=== PATIENT | male | born 1945 | race Caucasian/White ===

== ENCOUNTER → 2016-11-08 | Outpatient (CLI) | payer OTHER ==
[~2016-11-08] MED LIST: ALLO300T2 PO; LISI-725 PO; OPTIRAY 320 IV PRN; PANT1TAB48 PO; PRD10 PO; TAMS0.4C38 PO
[2016-11-08 11:55] LABS: BASO % 0.1 %; BASO ABS # 0.01 K/uL (0-0.2); HEMATOCRIT 36.7 % (42-52); IG% 1.6 %; LYMPH % 13.9 %; LYMPH ABS # 1.23 K/uL (1.2-3.4); MEAN CELL VOLUME 97.1 fL (80-100); MEAN CORPUSCULAR HEMOGLOBIN 34.1 pg (25-34); MEAN PLATELET VOLUME 9.2 fL (7.4-10.4); MONO % 8.2 %; NEUT % 75.2 %; PLATELET COUNT 198 K/uL (130-400); RED BLOOD COUNT 3.78 M/uL (4.7-6.1); WHITE BLOOD COUNT 8.83 K/uL (4.8-10.8)
[2016-11-08 12:04] LABS: COMPLETE YES; MEAN CORPUSCULAR HGB CONC 35.1 g/dl (32-36)
[2016-11-08 12:07] LABS: BLOOD UREA NITROGEN 20 mg/dl (7-18); BUN/CREATININE RATIO 16.4 (10-20); CALCIUM 9.5 mg/dl (8.5-10.1); CARBON DIOXIDE 31 mmol/L (21-32); CHLORIDE 101 mmol/L (98-107); GLUCOSE 114 mg/dl (70-99); POTASSIUM 4.1 mmol/L (3.5-5.1); SODIUM 136 mmol/L (136-145)
--- NOTE | 2016-11-08 14:31 | DIAGNOSTIC IMAGING REPORT ---
CT SCAN OF THE ABDOMEN AND PELVIS WITH IV CONTRAST CLINICAL HISTORY: Crohn's disease. Abscess. COMPARISON STUDY: No priors. TECHNIQUE: Following the IV administration of 93 cc of Optiray 320, CT scan of the abdomen and pelvis is performed from the lung bases to the proximal femora. Images are reviewed in the axial, sagittal, and coronal planes. IV contrast was administered without complication. A dose lowering technique was utilized adhering to the principles of ALARA. CT DOSE: 626.24 mGy.cm FINDINGS: Lung bases: The heart is normal in size and there is a small pericardial effusion. The coronary arteries are densely calcified. The lung bases are clear. Liver: The contrast-enhanced liver is normal in size and contour. The liver demonstrates diffusely diminished attenuation consistent with hepatic steatosis. There is no intrahepatic biliary ductal dilatation. The hepatic veins and portal veins are patent. Gallbladder: Large calcified gallstones are identified. The gallbladder is otherwise normal in appearance. Spleen: Normal in size and attenuation. Pancreas: There is moderate fatty atrophy of the pancreas. Adrenal glands: Unremarkable. Kidneys: The contrast enhanced kidneys there is remarkable cortical atrophy and are without hydronephrosis. The kidneys enhance symmetrically. There are at least 7 nonobstructing left renal calculi measuring up to 9 mm. There are at least 9 nonobstructing right renal calculi measuring up to 5 mm. A 12 mm cyst is noted in the left kidney. Additional subcentimeter cortical hypodensities also likely represent cysts but are too small for definitive characterization. Abdominal vasculature: There is moderate to advanced atherosclerotic calcification and ectasia of the abdominal aorta. There is mild intimal dilatation of the right common iliac artery which measures up to 1.9 cm. Bowel and peritoneum: A duodenal diverticulum is noted. There is no bowel obstruction. There is no intraperitoneal free air or abdominal ascites. There is a fat-containing umbilical hernia. There is multifocal narrowing of the cecum which appears tethered to adjacent loops of the distal/terminal ileum as well as itself. Several fistulous connections are identified, best seen on axial images #224 - 233 There is a complex, thick-walled and peripherally enhancing, multiloculated gas and fluid containing collection identified centered in the right ventral pelvic wall. This is best seen on axial image #281. The collection measures approximately 7.5 x 5 x 8.5 cm and appears to extend through the ventral abdominal wall into the subcutaneous fat. A thin tract extends between this collection and the adjacent cecum, best seen on axial images #251-264. No focally thick walled or hyperemic loops of bowel are identified to confirm active Crohn's disease. Lymphadenopathy: None. Pelvic viscera: The the bladder is distended. There is a large bladder diverticulum oriented posteriorly into the right. This measures up to 8 cm as seen on image #376. The prostate gland is diminutive and heterogeneous. The perianal soft tissues are normal as imaged. Skeletal structures: The skeletal structures are osteopenic. There is mild lumbosacral spondylosis. There are bilateral pars defects at L5 without evidence of anterolisthesis at L5-S1. No lytic or blastic lesions are seen. IMPRESSION: 1. There is no bowel obstruction. No intraperitoneal free air is seen. 2. There is significant abnormality identified involving the distal/terminal ileum and cecum. There is multifocal narrowing of the cecum with numerous fistulous connections identified between the cecum and the distal small bowel (colocolonic as well as enterocolonic). This is consistent with reported history of Crohn's disease. 3. No focally thick walled or hyperemic bowel loops are identified. 4. There is a multiloculated, thick-walled, gas and fluid containing fluid collection centered in the ventral right pelvic wall consistent with abscess. This extends through the pelvic wall and into the subcutaneous fat, and there is likely a fistulous connection between this collection and the cecum. 5. Nephrolithiasis and cholelithiasis. 6. There is a large bladder diverticulum. 7. Additional findings as above. Electronically signed by: Jere Chacon M.D. 11/08/2016 2:29 PM Dictated Date/Time: 11/08/2016 2:13 PM
== END | disposition home or self-care (01) ==
LOC: C.CTS 10:37
PROVIDERS: ATTEND Internal Medicine Gastroenterology
DX: K50.90 Crohn's disease, unspecified, without complications (principal); N20.0 Calculus of kidney; K80.20 Calculus of gallbladder without cholecystitis without obstruction; N32.3 Diverticulum of bladder

== ENCOUNTER 2016-11-20 13:28 | Emergency (ER) | payer OTHER ==
[~2016-11-20] VITALS: Ht 177.8 cm; Wt 90.7 kg
[2016-11-20 13:32] VITALS: TEMP 36.7; Ht 177.8 cm; Wt 90.7 kg
--- NOTE | 2016-11-20 14:28 | EMERGENCY ROOM VISIT NOTE ---
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 I was involved in the patient's care and did evaluate the patient myself. I was involved in the care throughout the ER stay. The patient's IV tubing was changed. He will receive his IV fluids. He can be discharged home.
[2016-11-20] MEDS ORDERED: PRD10 PO (14:45)
[2016-11-20] MEDS ORDERED: TAMS0.4C38 PO (14:45)
[2016-11-20] MEDS ORDERED: LISI-725 PO (14:45)
[2016-11-20] MEDS ORDERED: PANT1TAB48 PO (14:45)
[2016-11-20] MEDS ORDERED: ALLO300T2 PO (14:45)
--- NOTE | 2016-11-20 15:47 | EMERGENCY ROOM VISIT NOTE ---
History First contact with patient: 13:42 Chief Complaint: OTHER COMPLAINT Stated Complaint: IV ISSUE History of Present Illness The patient is a 71 year old male who presents to the Emergency Room with complaints of problem with his midline IV. Patient states that he was discharged yesterday from [facility] after receiving surgery for an ileostomy. He states that he has the midline IV to receive IV fluids for hydration support, he states he has to get 1 L every day. Today was the first day during the IV fluids, the home nurse came and hooked up his IV fluids. Patient states that he got up to go to the bathroom and was holding his IV bag down at his side, which caused blood to back up into the IV line. The home nurse was already gone, and the patient and his were uncomfortable managing this, they presented to the Emergency Department requesting additional education regarding his IV line. The patient denies any other complaints or issues and has been doing well since his discharge from the hospital. Review of Systems A complete 10 point review of systems was reviewed with the patient with pertinent positives and negatives as per history of present illness. All else were negative. Social History Smoking Status: Never Smoker Current/Historical Medications Scheduled Allopurinol (Zyloprim), 300 MG PO DAILY Lisinopril (Zestril), 20 MG PO DAILY Pantoprazole (Protonix), 40 MG PO DAILY Prednisone (Prednisone), 15 MG PO DAILY Tamsulosin Hcl (Flomax), 0.4 MG PO DAILY Physical Exam Vital Signs Date Time Temp Pulse Resp B/P (MAP) Pulse Ox O2 Delivery O2 Flow Rate FiO2 11/20/16 15:43 62 18 172/104 99 Room Air 11/20/16 13:32 36.7 93 18 164/86 97 Room Air Physical Exam CONSTITUTIONAL: No acute distress. Well appearing and well nourished. Alert and oriented X 4 with normal affect. RESPIRATORY: Clear to auscultation bilaterally with no wheezing, crackles, rhonchi or stridor. Equal expansion bilaterally. CARDIOVASCULAR: Regular rate and rhythm with no murmurs, rubs or gallops. Normal peripheral perfusion. No edema. GASTROINTESTINAL: Soft, nontender, nondistended. Bowel sounds present in all quadrants. MUSCULOSKELETAL: Full range of motion of all joints without discomfort. There is a left upper extremity midline IV site noted, no drainage, no erythema or swelling, nontender. INTEGUMENTARY: No rash or other significant dermatologic conditions noted. NEUROLOGIC: Cranial nerves II-XII grossly intact. No focal neurologic deficits noted. Medical Decision & Procedures Medical Decision Patient was concerned about blood leaking back from his IV line into the IV tubing for his fluids. He only received about half of his 1L fluid bag prior to this occurring. I did spend several minutes educating the patient and his regarding IV care , flushing and clamping of the line, and physically that he should not hold IV bag lower than his heart level to help prevent blood flow back into the line. I did instruct the patient that any time he is going to change positions with the bag that he should clamp it, and showed his how to do this. IV tubing was changed to new tubing with his existing bag from home, and the rest of his IV fluids were allow to infuse while in the ED. There was no complication. The patient was discussed with Dr. Chappell, who also evaluated the patient and agrees with my assessment and plan. The patient was instructed to follow up with his PCP as needed. Patient was discharged home in stable condition and ambulatory. Medication Reconcilliation Current Medication List: was personally reviewed by me Blood Pressure Screening Patient's blood pressure: Elevated blood pressure Blood pressure disposition: Referred to PCP Impression Primary Impression: IV infusion line dysfunction Departure Information Dispostion Home / Self-Care Condition GOOD Referrals Rudy Mckeon M.D. (PCP) Patient Instructions IV Care Catheter, My [employer] Additional Instructions Always keep the IV fluid bag hanging at a level above your head. If you need to change positions such as going into the bathroom, clamp the roller clamp on the tubing to prevents blood from flowing back into the IV tubing. Keep all follow-up appointment as scheduled. Follow-up with your PCP as needed. Problem Qualifiers Primary Impression: IV infusion line dysfunction Encounter type: initial encounter Qualified Codes: T82.598A - Other mechanical complication of other cardiac and vascular devices and implants, initial encounter
[2016-11-20 16:41] VITALS: BP 197/81; PULSE 67; O2SAT 99
== END 2016-11-20 16:40 | disposition home or self-care (01) ==
LOC: C.EDB 13:31 → C.EDD 16:40
DX: T82.9XXA Unspecified complication of cardiac and vascular prosthetic device, implant and graft, initial encounter (principal); X58.XXXA Exposure to other specified factors, initial encounter; Z93.2 Ileostomy status; Z79.899 Other long term (current) drug therapy

== ENCOUNTER → 2017-01-02 | Outpatient (CLI) | payer OTHER ==
[~2017-01-02] MED LIST changes: -OPTIRAY 320 IV PRN
== END | disposition home or self-care (01) ==
LOC: C.PATHSPEC 18:00
PROVIDERS: ATTEND Plastic Surgery
DX: D23.39 Other benign neoplasm of skin of other parts of face (principal)

== ENCOUNTER 2017-01-14 13:14 | Emergency (ER) | payer OTHER ==
[~2017-01-14] VITALS: Ht 177.8 cm; Wt 82.6 kg
[2017-01-14 13:17] VITALS: TEMP 36.3; Ht 177.8 cm; Wt 82.6 kg
[2017-01-14] MEDS ORDERED: SODIUM CHLORIDE 0.9% 1000ML 1,000 ML IV STA ×2 (14:20→15:47)
[2017-01-14 14:27] LABS: BASO % 0.3 %; BASO ABS # 0.03 K/uL (0-0.2); COMPLETE YES; EOS % 1.9 %; HEMATOCRIT 34.7 % (42-52); IG% 0.9 %; LYMPH % 22.9 %; LYMPH ABS # 2.69 K/uL (1.2-3.4); MEAN CELL VOLUME 96.7 fL (80-100); MEAN CORPUSCULAR HEMOGLOBIN 33.7 pg (25-34); MEAN CORPUSCULAR HGB CONC 34.9 g/dl (32-36); MEAN PLATELET VOLUME 8.8 fL (7.4-10.4); MONO % 7.8 %; NEUT % 66.2 %; PLATELET COUNT 325 K/uL (130-400); RED BLOOD COUNT 3.59 M/uL (4.7-6.1); WHITE BLOOD COUNT 11.74 K/uL (4.8-10.8)
[2017-01-14 14:40] LABS: BUN/CREATININE RATIO 26.8 (10-20); CALCIUM 9.4 mg/dl (8.5-10.1); CREATININE 1.87 mg/dl (0.60-1.40); POTASSIUM 5.5 mmol/L (3.5-5.1)
[2017-01-14] MEDS ORDERED: RMCI IV (15:05)
[2017-01-14 16:50] VITALS: BP 138/68; PULSE 74; O2SAT 99
--- NOTE | 2017-01-14 18:46 | EMERGENCY ROOM VISIT NOTE ---
History Report prepared by Sigrid: Darren Hannah Under the Supervision of: Dr. Giorgio Barrera D.O. First contact with patient: 13:22 Chief Complaint: OTHER COMPLAINT Stated Complaint: FATIGUE, ABNORMAL BLOOD WORK History of Present Illness The patient is a 71 year old male who presents to the Emergency Room with complaints of fatigue that began a couple of weeks ago. He had an ostomy placed in [place] 2 months ago secondary to an abscess to his right abdomen. At first, they tried to treat it with medications but it was persistent. After this, he had been very well until a couple of weeks ago. He began to feel abnormally weak and tired so he received blood work which was normal. His fatigue persisted and he received repeat laboratory work yesterday. He was called this morning stating that his levels were abnormal and he should go to the ER. His creatinine level was 1.5 and his potassium was 6.5. His results are in [employer] 's systems. Pt denies headache, change in vision, fevers, chest pain, shortness of breath, nausea, vomiting, diarrhea, pain with urination, hematochezia, and melena. He also denies any changes to his output which is normally around 1500. Source of History: patient Onset: a couple of weeks ago Position: other (Global) Symptom Intensity: moderate Quality: other (Fatigue) Timing: constant Associated Symptoms: No fevers, No chest pain, No SOB, No nausea, No vomiting, No melena, No hematochezia, No diarrhea, No urinary symptoms Note: He has abnormal laboratory results per outside facility. Review of Systems See HPI for pertinent positives & negatives. A total of 10 systems reviewed and were otherwise negative. Past Medical & Surgical Medical Problems: (1) Crohn's disease Surgical Problems: (1) Abdominal abscess (2) History of creation of ostomy Family History Omitted secondary to the patient's age. Social History Smoking Status: Never Smoker Smokeless Tobacco Use: No Drug Use: none Marital Status: Housing Status: lives with significant other Occupation Status: retired Current/Historical Medications Scheduled Allopurinol (Zyloprim), 300 MG PO DAILY Infliximab (Remicade), 1 DOSE IV Q8WK Lisinopril (Zestril), 20 MG PO DAILY Pantoprazole (Protonix), 40 MG PO DAILY Tamsulosin Hcl (Flomax), 0.4 MG PO DAILY Allergies Coded Allergies: No Known Allergies (Unverified , 11/20/16) Physical Exam Vital Signs Date Time Temp Pulse Resp B/P (MAP) Pulse Ox O2 Delivery O2 Flow Rate FiO2 01/14/17 16:50 74 16 138/68 99 01/14/17 15:56 76 16 137/69 98 01/14/17 14:06 72 18 125/72 99 Room Air 01/14/17 13:17 36.3 81 20 103/66 100 Room Air Physical Exam GENERAL: Sitting up in bed, alert, well appearing, well nourished, no distress, non-toxic EYE EXAM: normal conjunctiva. OROPHARYNX: no exudate, no erythema, lips, buccal mucosa, and tongue normal and mucous membranes are moist NECK: supple, no nuchal rigidity, no adenopathy, non-tender LUNGS: Clear to auscultation. Normal chest wall mechanics HEART: no murmurs, S1 normal and S2 normal ABDOMEN: abdomen soft, non-tender, normo-active bowel sounds, no masses, no rebound or guarding. Multiple old incisions with an ostomy in place. Green liquid output. BACK: Back is symmetrical on inspection and there is no deformity, no midline tenderness, no CVA tenderness. SKIN: no rashes and no bruising UPPER EXTREMITIES: upper extremities are grossly normal. LOWER EXTREMITIES: No pitting edema. NEURO EXAM: Normal sensorium, cranial nerves II-XII grossly intact, normal speech, no gross weakness of arms, no gross weakness of legs. Medical Decision & Procedures Laboratory Results 01/14/17 14:02 Red Blood Count 3.59, Mean Corpuscular Volume 96.7, Mean Corpuscular Hemoglobin 33.7, Mean Corpuscular Hemoglobin Concent 34.9, Mean Platelet Volume 8.8, Neutrophils (%) (Auto) 66.2, Lymphocytes (%) (Auto) 22.9, Monocytes (%) (Auto) 7.8, Eosinophils (%) (Auto) 1.9, Basophils (%) (Auto) 0.3, Neutrophils # (Auto) 7.78, Lymphocytes # (Auto) 2.69, Monocytes # (Auto) 0.92, Eosinophils # (Auto) 0.22, Basophils # (Auto) 0.03 01/14/17 14:02 Test 01/14/17 14:02 White Blood Count 11.74 K/uL (4.8-10.8) Red Blood Count 3.59 M/uL (4.7-6.1) Hemoglobin 12.1 g/dL (14.0-18.0) Hematocrit 34.7 % (42-52) Mean Corpuscular Volume 96.7 fL (80-100) Mean Corpuscular Hemoglobin 33.7 pg (25-34) Mean Corpuscular Hemoglobin Concent 34.9 g/dl (32-36) Platelet Count 325 K/uL (130-400) Mean Platelet Volume 8.8 fL (7.4-10.4) Neutrophils (%) (Auto) 66.2 % Lymphocytes (%) (Auto) 22.9 % Monocytes (%) (Auto) 7.8 % Eosinophils (%) (Auto) 1.9 % Basophils (%) (Auto) 0.3 % Neutrophils # (Auto) 7.78 K/uL (1.4-6.5) Lymphocytes # (Auto) 2.69 K/uL (1.2-3.4) Monocytes # (Auto) 0.92 K/uL (0.11-0.59) Eosinophils # (Auto) 0.22 K/uL (0-0.5) Basophils # (Auto) 0.03 K/uL (0-0.2) RDW Standard Deviation 50.9 fL (36.4-46.3) RDW Coefficient of Variation 14.2 % (11.5-14.5) Immature Granulocyte % (Auto) 0.9 % Immature Granulocyte # (Auto) 0.10 K/uL (0.00-0.02) Anion Gap 10.0 mmol/L (3-11) Est Creatinine Clear Calc Drug Dose 37.4 ml/min Estimated GFR () 41.0 Estimated GFR (Non- 35.4 BUN/Creatinine Ratio 26.8 (10-20) Calcium Level 9.4 mg/dl (8.5-10.1) Laboratory results per my review. Medications Administered Medications (Trade) Dose Ordered Sig/Jc Route Start Time Stop Time Status Last Admin Dose Admin Sodium Chloride 1,000 ml @ 999 mls/hr Q1H1M STAT IV 01/14/17 14:20 01/14/17 15:20 DC 01/14/17 14:40 999 MLS/HR Sodium Chloride 1,000 ml @ 999 mls/hr Q1H1M STAT IV 01/14/17 15:47 01/14/17 16:47 DC 01/14/17 15:56 999 MLS/HR ECG Indication: weakness Rate (beats per minute): 73 Rhythm: sinus rhythm Findings: Q waves (Septal), T-wave inversion (Septal), other (normal axis) ED Course ED COURSE: Vital signs were reviewed and showed normal vitals. The patients medical record was reviewed The above diagnostic studies were performed and reviewed. ED treatments and interventions as stated above. 1322: The patient was evaluated in room B10. A complete history and physical examination was performed. 1420: Ordered Sodium Chloride 1000 ml @ 999 mls/hr IV 1534: I updated the patient at this time. He is resting. 1545: I spoke with Dr. Mckeon - Primary Care Physician, at this time. He would like the patient to follow up with him as an outpatient. 1547: Ordered Sodium Chloride 1000 ml @ 999 mls/hr IV 1606: Upon reevaluation, the patient is resting. I discussed my findings with the patient and he understands and agrees with the treatment plan. Based on the patients age, coexisting illnesses, exam and lab findings the decision to treat as an outpatient was made. The patient remained stable while under my care. The patient appeared well at the time of discharge. Medical Decision Differential Diagnosis includes but is not limited to dehydration, stroke, anemia, hypoglycemia, hyponatremia, hypernatremia, urinary tract infection, pneumonia, bronchitis, sepsis, gastroenteritis, additional abdominal pathology, metabolic abnormalities and infections. Patient is a 71-year-old male referred in by PCP after visit stay for an elevated potassium. Patient has no other complaints with the exception of a stable ostomy output. This is been unchanged for the past 2 months. No other complaints. No abdominal pain. No nausea vomiting. Labs were repeated. Potassium was 5.5. Creatinine was 1.9. Sodium was 125. Upon review of previous sodiums this is actually improved. Patient was given 2 L normal saline. Discussed with PCP. He would prefer to continue to work him up as an outpatient. I felt this was reasonable. I instructed patient to stop lisinopril as with the hyperkalemia. There is no EKG changes. Patient was given 2 L normal saline and felt significant better. He was discharged follow- up with PCP. I do favor this is all secondary to dehydration. Discussed with Pt concerning signs and symptoms to watch out for. Pt was instructed to follow up with their PCP and discussed with the patient their option to return to the ED at anytime for persistent or worsening symptoms. The appropriate anticipatory guidance and out-patient management, including indications for return to the emergency department, were explained at length to the patient and understood. Medication Reconcilliation Current Medication List: was personally reviewed by me Blood Pressure Screening Patient's blood pressure: Normal blood pressure Blood pressure disposition: Did not require urgent referral Consults Time Called: 1540 Consulting Physician: Dr. Mckeon - PCP Returned Call: [phone] I reviewed the patient's case with him. He will evaluate the patient for further management as an outpatient. Impression Primary Impression: Hyperkalemia Additional Impressions: Hyponatremia Dehydration Scribe Attestation The scribe's documentation has been prepared under my direction and personally reviewed by me in its entirety. I confirm that the note above accurately reflects all work, treatment, procedures, and medical decision making performed by me. Departure Information Dispostion Home / Self-Care Referrals Rudy Mckeon M.D. Forms HOME CARE DOCUMENTATION FORM, IMPORTANT VISIT INFORMATION, WORK / SCHOOL INSTRUCTIONS Patient Instructions Hyperkalemia Dc, Hyponatremia Dc, My [facility] Additional Instructions Please follow up with your primary care doctor with in the next 24 hours. Any worsening of your symptoms, please return to the ED immediately. This includes any fevers greater than 100.4, worsening pain, chest pain, shortness breath, persistent nausea, vomiting, unable to eat or drink, or any other concerning signs or symptoms from your standpoint. Please try to remain as hydrated as possible. Please hold your lisinopril until you see your primary care doctor. Please call him tomorrow as he is aware and wants to see you in the office. Problem Qualifiers
== END 2017-01-14 16:51 | disposition home or self-care (01) ==
LOC: C.EDB 13:15
DX: E87.5 Hyperkalemia (principal); E87.1 Hypo-osmolality and hyponatremia; E86.0 Dehydration; K50.90 Crohn's disease, unspecified, without complications; Z79.899 Other long term (current) drug therapy; Z98.890 Other specified postprocedural states

== ENCOUNTER → 2017-01-31 | Outpatient (CLI) | payer OTHER ==
[~2017-01-31] MED LIST changes: +PANT1TAB3 PO; -PANT1TAB48 PO; -PRD10 PO; +RMCI IV
--- NOTE | 2017-01-31 09:45 | DIAGNOSTIC IMAGING REPORT ---
BARIUM [facility]EMA CLINICAL HISTORY: 71 years-old Male presenting with S/P ILEOSTOMY, loop ileostomy, history of Crohn's disease. TECHNIQUE: A standard water-soluble contrast enema was performed. Initial supine abdominal radiograph was obtained. A rectal exam was performed prior to insertion of a rectal tube into the anus. Subsequently under video fluoroscopic evaluation, diluted water-soluble contrast was administered by gravity drainage via the rectal tube. Multiple spot fluoroscopic images were obtained of the rectum and bowel. COMPARISON: CT from 11/08/2016. 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 Atherosclerosis. No gross pneumoperitoneum. After administration of rectal contrast, the rectum distends normally. The sigmoid colon mildly distends early in the examination and remains decompressed through the remainder of the exam as contrast transited proximally. Contrast noted in a normal-appearing transverse colon with a suspected ileocolic anastomosis/neoterminal ileum at the level of the hepatic flexure. Distal small bowel opacifies normally to the level of the loop ileostomy. Free passage of contrast in a retrograde fashion into the ostomy bag noted as expected. No evidence of leakage or holdup of contrast. Post evacuation radiographs demonstrate some residual contrast in the distal ileum and colon. An overall featureless descending and sigmoid colon suggest chronic inflammatory change. Again, no leakage of contrast is apparent. Fluoroscopy dosage (mGy): Not available. Fluoroscopy time: 1.8 minutes. Number of fluoroscopic spot images: 23. IMPRESSION: 1. No evidence of leakage or holdup of contrast from the rectum to the loop ileostomy. 2. Postsurgical changes of right hemicolectomy with a neoterminal ileum in the right mid abdomen. 3. Featureless descending and sigmoid colon suggests chronic inflammatory change/Crohn's colitis. 4. Cholelithiasis. 5. Bilateral nephrolithiasis. Electronically signed by: Herman Amin M.D. 01/31/2017 9:44 AM Dictated Date/Time: 01/31/2017 9:37 AM
== END | disposition home or self-care (01) ==
LOC: C.RAD 08:30
PROVIDERS: ATTEND Nurse Practitioner Family
DX: Z93.2 Ileostomy status (principal)

== ENCOUNTER → 2017-06-28 | Outpatient (CLI) | payer OTHER | END | disposition home or self-care (01) | LOC: C.LABSPEC 15:02 | PROVIDERS: ATTEND Urology | DX: R33.9 Retention of urine, unspecified (principal); N40.1 Benign prostatic hyperplasia with lower urinary tract symptoms ==

== ENCOUNTER → 2017-09-10 | Outpatient (CLI) | payer OTHER | END | disposition home or self-care (01) | LOC: C.PATHSPEC 17:20 | PROVIDERS: ATTEND Urology | DX: N40.1 Benign prostatic hyperplasia with lower urinary tract symptoms (principal); R33.9 Retention of urine, unspecified; N39.0 Urinary tract infection, site not specified ==

== ENCOUNTER → 2017-09-25 | Outpatient (CLI) | payer OTHER | END | disposition home or self-care (01) | LOC: C.LABSPEC 17:12 | PROVIDERS: ATTEND Urology | DX: N39.0 Urinary tract infection, site not specified (principal); N40.1 Benign prostatic hyperplasia with lower urinary tract symptoms; R33.9 Retention of urine, unspecified ==